=== PATIENT | male | born 1985 | race Caucasian/White ===

== ENCOUNTER 2017-09-28 13:56 | Emergency (ER) | payer OTHER ==
[~2017-09-28] VITALS: Ht 177.8 cm; Wt 73.0 kg
[2017-09-28 14:36] VITALS: BP 120/86; PULSE 65; RESP 22; TEMP 98.8; O2SAT 100
[2017-09-28 15:48] LABS: AUTOMATED NEUTROPHIL # 4.1 TH/MM3 (1.8-7.7); BASOPHIL % 0.6 % (0.0-2.0); EOSINOPHIL # 0.1 TH/MM3 (0-0.4); EOSINOPHIL % 1.3 % (0.0-4.0); HEMATOCRIT 37.6 % (39.0-51.0); HEMOGLOBIN 13.1 GM/DL (13.0-17.0); LYMPH % 24.9 % (9.0-44.0); LYMPHOCYTE # 1.6 TH/MM3 (1.0-4.8); MEAN CELL VOLUME 85.8 FL (80.0-100.0); MEAN PLATELET VOLUME 8.6 FL (7.0-11.0); MONO % 6.5 % (0.0-8.0); MONOCYTE # 0.4 TH/MM3 (0-0.9); NEUT % 66.7 % (16.0-70.0); PLATELET COUNT 157 TH/MM3 (150-450); RED BLOOD COUNT 4.38 MIL/MM3 (4.50-5.90); RED CELL DISTRIBUTION WIDTH 13.2 % (11.6-17.2); WHITE BLOOD COUNT 6.2 TH/MM3 (4.0-11.0)
[2017-09-28 16:02] LABS: ALBUMIN 4.1 GM/DL (3.4-5.0); AST (GOT) 17 U/L (15-37); BLOOD UREA NITROGEN 13 MG/DL (7-18); CALCIUM 8.8 MG/DL (8.5-10.1); CHLORIDE 107 MEQ/L (98-107); CREATININE 0.93 MG/DL (0.60-1.30); GLOMERULAR FILTRATION RATE 94 ML/MIN (>89); GLUCOSE,RANDOM 66 MG/DL (74-106); SODIUM (NA) 141 MEQ/L (136-145)
[2017-09-28 16:03] LABS: ALT (GPT) 17 U/L (12-78)
--- NOTE | 2017-09-28 16:29 | PD ---
HPI Chief Complaint: Suicide Ideation/Attempt Time Seen by Provider: 14:21 Travel History International Travel<30 days: No Contact w/Intl Traveler<30days: No Traveled to known affect area: No History of Present Illness HPI 32-year-old male complains of suicidal ideation. He reports depression and anxiety. He denies a plan. He denies homicidal ideation. He denies drug abuse. He drank 2 beers yesterday while playing bingo. Location neuropsychiatric. Severity moderate. PFSH Past Medical History Anxiety: Yes Depression: Yes ?: Not Past Surgical History Abdominal Surgery: Yes (bowel surgery) Appendectomy: Yes Ear Surgery: Yes (left ear) Social History Alcohol Use: Yes Tobacco Use: Yes Substance Use: No Allergies-Medications (Allergen,Severity, Reaction): Coded Allergies: No Known Allergies (Unverified , 09/28/17) Reported Meds & Prescriptions Reported Meds & Active Scripts Active No Active Prescriptions or Reported Medications Review of Systems Except as stated in HPI: all other systems reviewed are Neg General / Constitutional: No: Fever, Chills, Weight Gain, Weight Loss, Other Physical Exam Narrative GENERAL: 32-year-old male well-nourished well-developed Trinidadian-speaking and negative speaking prefers to communicate with the undersigned in Kazakh Vital Signs Date Time Temp Pulse Resp B/P (MAP) Pulse Ox O2 Delivery O2 Flow Rate FiO2 09/28/17 14:36 98.8 65 22 120/86 (97) 100 SKIN: Warm and dry. HEAD: Atraumatic. Normocephalic. EYES: Pupils equal and round. No scleral icterus. No injection or drainage. ENT: No nasal bleeding or discharge. Mucous membranes pink and moist. NECK: Trachea midline. No JVD. CARDIOVASCULAR: Regular rate and rhythm. RESPIRATORY: No accessory muscle use. Clear to auscultation. Breath sounds equal bilaterally. GASTROINTESTINAL: Abdomen soft, non-tender, nondistended. Hepatic and splenic margins not palpable. MUSCULOSKELETAL: Extremities without clubbing, cyanosis, or edema. No obvious deformities. NEUROLOGICAL: Awake and alert. No obvious cranial nerve deficits. Motor grossly within normal limits. Five out of 5 muscle strength in the arms and legs. Normal speech. PSYCHIATRIC: Appropriate mood and affect; insight and judgment normal. Data Data Last Documented VS Vital Signs Date Time Temp Pulse Resp B/P (MAP) Pulse Ox O2 Delivery O2 Flow Rate FiO2 09/28/17 14:36 98.8 65 22 120/86 (97) 100 Orders Orders Complete Blood Count With Diff (09/28/17 14:36) Comprehensive Metabolic Panel (09/28/17 14:36) Thyroid Stimulating Hormone (09/28/17 14:36) Psych Screen (09/28/17 14:36) Drug Screen, Random Urine (09/28/17 14:36) Alcohol (Ethanol) (09/28/17 14:36) Salicylates (Aspirin) (09/28/17 14:36) Tylenol (Acetaminophen) (09/28/17 14:36) Labs Laboratory Tests Test 09/28/17 15:16 09/28/17 15:20 White Blood Count 6.2 TH/MM3 Red Blood Count 4.38 MIL/MM3 Hemoglobin 13.1 GM/DL Hematocrit 37.6 % Mean Corpuscular Volume 85.8 FL Mean Corpuscular Hemoglobin 30.0 PG Mean Corpuscular Hemoglobin Concent 35.0 % Red Cell Distribution Width 13.2 % Platelet Count 157 TH/MM3 Mean Platelet Volume 8.6 FL Neutrophils (%) (Auto) 66.7 % Lymphocytes (%) (Auto) 24.9 % Monocytes (%) (Auto) 6.5 % Eosinophils (%) (Auto) 1.3 % Basophils (%) (Auto) 0.6 % Neutrophils # (Auto) 4.1 TH/MM3 Lymphocytes # (Auto) 1.6 TH/MM3 Monocytes # (Auto) 0.4 TH/MM3 Eosinophils # (Auto) 0.1 TH/MM3 Basophils # (Auto) 0.0 TH/MM3 CBC Comment DIFF FINAL Differential Comment Blood Urea Nitrogen 13 MG/DL Creatinine 0.93 MG/DL Random Glucose 66 MG/DL Total Protein 7.7 GM/DL Albumin 4.1 GM/DL Calcium Level 8.8 MG/DL Alkaline Phosphatase 86 U/L Aspartate Amino Transf (AST/SGOT) 17 U/L Alanine Aminotransferase (ALT/SGPT) 17 U/L Total Bilirubin 0.8 MG/DL Sodium Level 141 MEQ/L Potassium Level 3.9 MEQ/L Chloride Level 107 MEQ/L Carbon Dioxide Level 28.0 MEQ/L Anion Gap 6 MEQ/L Estimat Glomerular Filtration Rate 94 ML/MIN Thyroid Stimulating Hormone 3rd Gen 0.812 uIU/ML Salicylates Level LESS THAN 1.7 MG/DL Acetaminophen Level LESS THAN 2.0 MCG/ML Ethyl Alcohol Level LESS THAN 3 MG/DL Urine Opiates Screen NEG Urine Barbiturates Screen NEG Urine Amphetamines Screen NEG Urine Benzodiazepines Screen NEG Urine Cocaine Screen NEG Urine Cannabinoids Screen POS MDM Medical Decision Making Medical Screen Exam Complete: Yes Emergency Medical Condition: Yes Differential Diagnosis Altered mental status/psychosis due to infection/environmental exposure/ metabolic abnormality, polypharmacy, alcohol abuse/intoxication, illicit or prescribed drug abuse, malingering/secondary gain, non-organic psychiatric disease Narrative Course CBC & BMP Diagram 09/28/17 15:16 Albumin 4.1, Calcium Level 8.8, Aspartate Amino Transf (AST/SGOT) 17, Alanine Aminotransferase (ALT/SGPT) 17 Patient is medically clear for evaluation by psychiatry service. Diagnosis Primary Impression: Suicidal ideation Admitting Information Admitting Physician Requests: Observation Scripts No Active Prescriptions or Reported Meds Tamir Thomas MD Sep 28, 2017 16:29
[2017-09-28 16:34] LABS: ALKALINE PHOSPHATASE 86 U/L (45-117); TOTAL BILIRUBIN ADULT 0.8 MG/DL (0.2-1.0); TOTAL PROTEIN 7.7 GM/DL (6.4-8.2)
[2017-09-28 16:41] LABS: ACETAMINOPHEN LESS THAN 2.0 MCG/ML (10.0-30.0)
[2017-09-28 16:49] VITALS: BP 124/78
[2017-09-28 18:12] VITALS: BP 123/57; PULSE 60; RESP 18; TEMP 98.7; O2SAT 99
[2017-09-28 20:07] VITALS: BP 119/67; PULSE 55; RESP 17; TEMP 98.6; O2SAT 99
[2017-09-29 01:06] VITALS: BP 97/57; PULSE 56; RESP 18; TEMP 98.4; O2SAT 100
[2017-09-29 05:08] VITALS: BP 119/69; PULSE 64; RESP 17; TEMP 98.3; O2SAT 97
[2017-09-29 10:55] VITALS: BP 155/65; PULSE 55; RESP 16; O2SAT 100
--- NOTE | 2017-09-29 13:03 | PD ---
History of Present Illness Chief Complaint: Suicide Ideation/Attempt Time Seen by Provider: 12:15 Travel History International Travel<30 Days: No Contact w/Intl Traveler<30days: No Known affected area: No Legal Status Legal Status: Card Act Card Act Signed By: Jassi Lopez History of Present Illness: History of Present Illness HPI 32-year-old, single, male of [place] ethnicity, living with his parents, no previous psychiatric history, under Card act initiated by law enforcement. The Card act alleges that the patient reported that he may cut his wrists due to feeling suicidal and depressed due to recent breakup with significant other and loss of job. He did not make any attempt to harm himself. As per ED documentation reviewed" He denies a plan. He denies homicidal ideation. He denies drug abuse. He drank 2 beers yesterday while playing [employer] The patient was monitor in secure environment and he presented no suicidality. Electronic medical record is reviewed. No previous contact with [facility] psychiatry. Current toxicology is positive for cannabinoids Patient is seen. Patient is alert, oriented 4. He communicates well in Cook Islander and in Yi. Maintaining basic hygiene. Affect is variable and congruent to mood. Adequate amount of eye contact. His speech is clear, logical, goal directed and of normal tone and rate. His thoughts are clear, organized. There is no evidence of any psychosis. I can elicit no delusions and no paranoia. His mood is anxious with worries over being able to find a job. Attention and concentration are not impaired. Fund of knowledge is average. He denies suicidal or homicidal ideation, intent or plan. The patient does admit to feeling overwhelmed with not being able to find a job after being unemployed since September 13. In terms of substance abuse patient admits to use of marijuana. Is a social drinker. Telephone call from his mother, Jasmyne Guidry. She states that the patient has always been well and has been a hard worker. He now finds himself unemployed for the past 2 weeks, is having conflicts with his boyfriend and they have recently . She would like for him to get counseling. She has no other concerns for his safety. [facility] Past Medical History Anxiety: Yes Depression: Yes ?: Not Past Surgical History Abdominal Surgery: Yes (bowel surgery) Appendectomy: Yes Ear Surgery: Yes (left ear) Psychiatric History Psychiatric History Hx Psychiatric Treatment: No reported psychiatric history. One suicide gesture 6 years ago by overdosing on some pills. No history of self-injurious behavior. History of Inpatient Treatment: No Guns or firearms in home: No Social History Patient is born and raised in [place]. He moved to [place] in 1999 patient has worked for an [employer] and has mostly worked in the [employer], he is single. Currently living with his parents. Has a partner for the past 2-1/ 2 years and are currently . Hx Alcohol Use: Yes Hx Tobacco Use: Yes Hx Substance Use: Yes (Pt last drank 09/27; marijuana use 09/20) Substance Use Type: Alcohol, Marijuana Hx of Substance Use Treatment: No Family Psychiatric History Sister with unknown mental health history. Allergies-Medications (Allergen,Severity, Reaction): Coded Allergies: No Known Allergies (Unverified , 09/28/17) Reported Meds & Prescriptions Reported Meds & Active Scripts Active No Active Prescriptions or Reported Medications Review of Systems Except as stated in HPI: all other systems reviewed are Neg Mental Status Examination Appearance: Appropriate Consciousness: Alert Orientation: x4 Motor Activity: Normal gait Speech: Unremarkable Language: Adequate Fund of Knowledge: Adequate Attention and Concentration: Adequate Memory: Unremarkable Mood: Appropriate, Anxious Affect: Appropriate Thought Process & Associations: Intact, Logical, Goal directed Thought Content: Appropriate Hallucination Type: None Delusion Type: None Suicidal Ideation: No Suicidal Plan: No Suicidal Intention: No Homicidal Ideation: No Homicidal Plan: No Homicidal Intention: No Insight: Fair Judgment: Impulsive MDM Medical Decision Making Medical Record Reviewed: Yes Assessment/Plan 32-year-old, single, male of [place] ethnicity, living with his parents, no previous psychiatric history, under Card act initiated by law enforcement. The Card act alleges that the patient reported that he may cut his wrists due to feeling suicidal and depressed due to recent breakup with significant other and loss of job. He did not make any attempt to harm himself. Patient was monitored in secure environment and presented no behavioral dysregulation and no suicidality. There is no psychosis and no obed. Mood is anxious. The patient is future oriented and wants to find a job and has been busy placing different applications. He does acknowledge he became frustrated with not finding a job. He is living with his parents and they are supportive. At this time he does not present any cognitive impairment. Does not present evidence of unstable mental illness has defined under the Card act. He is requesting to be discharged and agrees to follow up with [facility]. He is advised to return to the ED if any changes in condition as a general safety plan. The Card act as lifted. Psychiatrically clear for discharge from the ED. Orders Orders Complete Blood Count With Diff (09/28/17 14:36) Comprehensive Metabolic Panel (09/28/17 14:36) Thyroid Stimulating Hormone (09/28/17 14:36) Psych Screen (09/28/17 14:36) Drug Screen, Random Urine (09/28/17 14:36) Alcohol (Ethanol) (09/28/17 14:36) Salicylates (Aspirin) (09/28/17 14:36) Tylenol (Acetaminophen) (09/28/17 14:36) Diet Regular Basic (09/28/17 Dinner) Hydroxyzine Pamoate (Vistaril) (09/28/17 21:30) Diet Regular Basic (09/29/17 Breakfast) Diet Regular Basic (09/29/17 Lunch) Results Vital Signs Date Time Temp Pulse Resp B/P (MAP) Pulse Ox O2 Delivery O2 Flow Rate FiO2 09/29/17 10:55 55 16 155/65 (95) 100 Room Air 09/29/17 05:08 98.3 64 17 119/69 (86) 97 Room Air 09/29/17 01:06 98.4 56 18 97/57 (70) 100 Room Air 09/28/17 20:07 98.6 55 17 119/67 (84) 99 Room Air 09/28/17 18:12 98.7 60 18 123/57 (79) 99 Room Air 09/28/17 16:49 78 18 124/78 (93) 98 09/28/17 14:36 98.8 65 22 120/86 (97) 100 Laboratory Tests Test 09/28/17 15:16 09/28/17 15:20 White Blood Count 6.2 Red Blood Count 4.38 Hemoglobin 13.1 Hematocrit 37.6 Mean Corpuscular Volume 85.8 Mean Corpuscular Hemoglobin 30.0 Mean Corpuscular Hemoglobin Concent 35.0 Red Cell Distribution Width 13.2 Platelet Count 157 Mean Platelet Volume 8.6 Neutrophils (%) (Auto) 66.7 Lymphocytes (%) (Auto) 24.9 Monocytes (%) (Auto) 6.5 Eosinophils (%) (Auto) 1.3 Basophils (%) (Auto) 0.6 Neutrophils # (Auto) 4.1 Lymphocytes # (Auto) 1.6 Monocytes # (Auto) 0.4 Eosinophils # (Auto) 0.1 Basophils # (Auto) 0.0 CBC Comment DIFF FINAL Differential Comment Blood Urea Nitrogen 13 Creatinine 0.93 Random Glucose 66 Total Protein 7.7 Albumin 4.1 Calcium Level 8.8 Alkaline Phosphatase 86 Aspartate Amino Transf (AST/SGOT) 17 Alanine Aminotransferase (ALT/SGPT) 17 Total Bilirubin 0.8 Sodium Level 141 Potassium Level 3.9 Chloride Level 107 Carbon Dioxide Level 28.0 Anion Gap 6 Estimat Glomerular Filtration Rate 94 Thyroid Stimulating Hormone 3rd Gen 0.812 Salicylates Level LESS THAN 1.7 Acetaminophen Level LESS THAN 2.0 Ethyl Alcohol Level LESS THAN 3 Urine Opiates Screen NEG Urine Barbiturates Screen NEG Urine Amphetamines Screen NEG Urine Benzodiazepines Screen NEG Urine Cocaine Screen NEG Urine Cannabinoids Screen POS Diagnosis Primary Impression: Adjustment disorder Ruled Out: Suicidal ideation Psychiatrically Cleared: Yes Med/ Other Pt Specific Info: No Meds Exist/No RX given Prescriptions No Active Prescriptions or Reported Meds Disposition: 01 DISCHARGE HOME Condition: Stable Problem Qualifiers Primary Impression: Adjustment disorder Qualified Codes: F43.22 - Adjustment disorder with anxiety Hina Swain [facility] Sep 29, 2017 13:03
--- NOTE | 2017-09-29 13:37 | PD ---
Physical Exam Time Seen by Provider: 13:36 Abdoul Santamaria has evaluated the patient, lifted the Card act and cleared the patient for discharge. Data Data Last Documented VS Vital Signs Date Time Temp Pulse Resp B/P (MAP) Pulse Ox O2 Delivery O2 Flow Rate FiO2 09/29/17 10:55 55 16 155/65 (95) 100 Room Air 09/29/17 05:08 98.3 Orders Orders Complete Blood Count With Diff (09/28/17 14:36) Comprehensive Metabolic Panel (09/28/17 14:36) Thyroid Stimulating Hormone (09/28/17 14:36) Psych Screen (09/28/17 14:36) Drug Screen, Random Urine (09/28/17 14:36) Alcohol (Ethanol) (09/28/17 14:36) Salicylates (Aspirin) (09/28/17 14:36) Tylenol (Acetaminophen) (09/28/17 14:36) Diet Regular Basic (09/28/17 Dinner) Hydroxyzine Pamoate (Vistaril) (09/28/17 21:30) Diet Regular Basic (09/29/17 Breakfast) Diet Regular Basic (09/29/17 Lunch) Ed Discharge Order (09/29/17 13:37) Labs Laboratory Tests Test 09/28/17 15:16 09/28/17 15:20 White Blood Count 6.2 TH/MM3 Red Blood Count 4.38 MIL/MM3 Hemoglobin 13.1 GM/DL Hematocrit 37.6 % Mean Corpuscular Volume 85.8 FL Mean Corpuscular Hemoglobin 30.0 PG Mean Corpuscular Hemoglobin Concent 35.0 % Red Cell Distribution Width 13.2 % Platelet Count 157 TH/MM3 Mean Platelet Volume 8.6 FL Neutrophils (%) (Auto) 66.7 % Lymphocytes (%) (Auto) 24.9 % Monocytes (%) (Auto) 6.5 % Eosinophils (%) (Auto) 1.3 % Basophils (%) (Auto) 0.6 % Neutrophils # (Auto) 4.1 TH/MM3 Lymphocytes # (Auto) 1.6 TH/MM3 Monocytes # (Auto) 0.4 TH/MM3 Eosinophils # (Auto) 0.1 TH/MM3 Basophils # (Auto) 0.0 TH/MM3 CBC Comment DIFF FINAL Differential Comment Blood Urea Nitrogen 13 MG/DL Creatinine 0.93 MG/DL Random Glucose 66 MG/DL Total Protein 7.7 GM/DL Albumin 4.1 GM/DL Calcium Level 8.8 MG/DL Alkaline Phosphatase 86 U/L Aspartate Amino Transf (AST/SGOT) 17 U/L Alanine Aminotransferase (ALT/SGPT) 17 U/L Total Bilirubin 0.8 MG/DL Sodium Level 141 MEQ/L Potassium Level 3.9 MEQ/L Chloride Level 107 MEQ/L Carbon Dioxide Level 28.0 MEQ/L Anion Gap 6 MEQ/L Estimat Glomerular Filtration Rate 94 ML/MIN Thyroid Stimulating Hormone 3rd Gen 0.812 uIU/ML Salicylates Level LESS THAN 1.7 MG/DL Acetaminophen Level LESS THAN 2.0 MCG/ML Ethyl Alcohol Level LESS THAN 3 MG/DL Urine Opiates Screen NEG Urine Barbiturates Screen NEG Urine Amphetamines Screen NEG Urine Benzodiazepines Screen NEG Urine Cocaine Screen NEG Urine Cannabinoids Screen POS MDM Supervised Visit with [facility]: No Narrative Course Hina has evaluated the patient, lifted the Card act and cleared the patient for discharge. Patient contracts safety. Denies suicidal or homicidal ideations. Patient will be provided community resource packet to [facility] for follow-up. Has friends and family for support. Patient was medically cleared by alternate provider prior to psych screening. Patient has been evaluated by psychiatry and and is now cleared for discharge. Diagnosis Primary Impression: Adjustment disorder Ruled Out: Suicidal ideation Referrals: [facility] (Out patient) [facility] Primary Care Physician Psychiatrist [facility] Patient Instructions: General Instructions, Mood Disorders (ED) Additional Instruction: Contract safety to your self and others Follow-up with psychiatry Follow-up with primary care provider Follow-up with [facility] Return to the emergency department immediately with worsening of symptoms Med/Other Pt SpecificInfo: No Change to Meds, No Meds Exist/No RX given Scripts No Active Prescriptions or Reported Meds Disposition: 01 DISCHARGE HOME Condition: Stable Rafaela De Dios Sep 29, 2017 13:37
== END 2017-09-29 14:20 | disposition home or self-care (01) ==
LOC: NEPD 13:56 → NEPJ 09-29 14:20
DX: F43.22 Adjustment disorder with anxiety (principal); Z72.0 Tobacco use
CPT/HCPCS: 80053; 80307; 84443; 85025; 99283